=== PATIENT | female | born 1995 | race Caucasian/White ===

== ENCOUNTER → 2016-10-19 | Outpatient (CLI) | payer OTHER ==
--- NOTE | 2016-10-19 12:32 | MAMMOGRAPHY REPORT ---
ULTRASOUND OF RIGHT BREAST: 10/19/2016 CLINICAL HISTORY: The patient reports that her physician felt a palpable lump during a routine clini garret exam. The order states that the mass is located in the right breast at 10:30 and measures appro ximately 1 cm. COMPARISON: No prior exams were available for comparison. TECHNIQUE: Real-time targeted ultrasound of the right breast was performed. FINDINGS: Real-time, high resolution targeted ultrasound was performed of the area of the palpable lump report ed by the patient's physician. The patient could not pinpoint the exact location of the lump, theref ore, ultrasound was performed of the right 10 to 11:00 breast in the region of the lump. Sonographi karine normal tissue is seen in this region, without a suspicious mass or other suspicious sonographi c abnormality evident. IMPRESSION: ACR BI-RADS CATEGORY 1: NEGATIVE No sonographic abnormality in the right 10 to 11:00 breast, in the region of the palpable lump felt by the patient's physician. There is no sonographic evidence of malignancy. Recommend clinical fol low-up. Mary Carmen Alarcon M.D. ah/:10/19/2016 09:54:59 [employer] Clerk: Mercedes BARNETT(Bienvenido)(M), [facility] letter sent: Normal 1/2 BI-RADS Code: ACR BI-RADS Category 1: Negative
== END | disposition home or self-care (01) ==
LOC: C.MAMM 09:31
PROVIDERS: ATTEND Nurse Practitioner Women's Health
DX: N63 Unspecified lump in breast (principal)